=== PATIENT | male | born 1975 | race African-American/Black ===

== ENCOUNTER 2021-02-03 23:48 | Emergency (ER) | payer BC ==
[2021-02-03 23:58] VITALS: BMI 30.2
[2021-02-04 00:11] VITALS: BP 159/108; PULSE 73; TEMP 99.2
[2021-02-04] MEDS ORDERED: DIPHTH,PERTUSS(ACELL),TET 0.5 ML DISP.SYRIN IM ONE ×2 (00:19→00:23)
[2021-02-04] MEDS ORDERED: IBUPROFEN 600 MG TABLET (FP) PO ONE ×2 (01:38→01:39)
== END 2021-02-04 01:48 | disposition home or self-care (01) ==
LOC: FER 23:48
PROC: 0HQDXZZ Repair Right Lower Arm Skin, External Approach (ICD-10-PCS; principal; 2021-02-03)
PROC: 3E0234Z Introduction of Serum, Toxoid and Vaccine into Muscle, Percutaneous Approach (ICD-10-PCS; 2021-02-03)
DX: S61.511A Laceration without foreign body of right wrist, initial encounter (principal); S60.211A Contusion of right wrist, initial encounter
CPT/HCPCS: 73090-TC-RT-FY; 73130-TC-RT-FY; 90715; 99284-25

== ENCOUNTER 2021-02-11 05:12 | Emergency (ER) | payer BC ==
[2021-02-11 05:18] VITALS: BP 163/113; PULSE 61; TEMP 98; BMI 29.5
== END 2021-02-11 05:28 | disposition home or self-care (01) ==
LOC: FER 05:12
DX: Z48.02 Encounter for removal of sutures (principal)
CPT/HCPCS: 99281-25

== ENCOUNTER 2022-11-19 04:29 | Emergency (ER) | payer BC ==
[2022-11-19 04:40] VITALS: BP 149/99; PULSE 59; RESP 19; TEMP 97.8; BMI 30.4
== END 2022-11-19 05:15 | disposition left against medical advice (07) ==
LOC: FER 04:29
DX: R07.9 Chest pain, unspecified (principal); R20.0 Anesthesia of skin; R42 Dizziness and giddiness
CPT/HCPCS: 93005; 99283-25